=== PATIENT | male | born 1995 | race Caucasian/White ===

== ENCOUNTER 2016-08-19 01:08 | Emergency (ER) | payer OTHER ==
[~2016-08-19] VITALS: Ht 180.3 cm; Wt 84.1 kg
[2016-08-19 01:22] VITALS: BP 107/60; RESP 16; TEMP 98.2
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
[2016-08-19 01:44] VITALS: PULSE 106; O2SAT 98
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
== END 2016-08-19 03:34 ==
LOC: NEPA 01:08
DX: S02.2XXA Fracture of nasal bones, initial encounter for closed fracture (principal); S01.512A Laceration without foreign body of oral cavity, initial encounter; Y04.2XXA Assault by strike against or bumped into by another person, initial encounter
CPT/HCPCS: 70450; 70486; 73030